=== PATIENT | male | born 1970 | race Caucasian/White ===

== ENCOUNTER 2019-04-12 15:24 | Emergency (ER) | payer OTHER ==
[~2019-04-12] VITALS: Ht 180.3 cm; Wt 102.1 kg
[2019-04-12] MEDS ORDERED: LISINOPRIL20 MG PO (15:29)
[2019-04-12] MEDS ORDERED: LOPID600 MG PO (15:30)
[2019-04-12 15:40] LABS: ABSOLUTE EOSINOPHILS 0.1 thou/uL (0.0-0.7); ABSOLUTE LYMPHOCYTES 1.7 thou/uL (0.8-5.3); ABSOLUTE MONOCYTES 0.5 thou/uL (0.0-1.2); ABSOLUTE NEUTROPHILS 3.3 thou/uL (1.6-8.1); BASOPHILS 0.8 %; EOSINOPHILS 1.9 %; HEMATOCRIT 45.2 % (42.0-52.0); HEMOGLOBIN 15.4 gm/dL (14.0-18.0); LYMPHOCYTES 30.1 %; MCH 29.8 pg (26.0-34.0); MCV 87.6 fL (80.0-100.0); MONOCYTES 8.4 %; MPV 7.7 fl. (7.2-11.1); NUCLEATED RBCS 0 /100WBC; PLATELET COUNT* 211 thou/uL (150-400); POLYS 58.8 %; RBC 5.16 mil/uL (4.50-6.00); RDW-CV 13.6 % (10.5-14.5); WBC 5.7 thou/uL (4.0-11.0)
[2019-04-12 15:53] LABS: APTT 27.3 Seconds (25.0-31.3); PROTIME 9.8 Seconds (9.20-11.50)
[2019-04-12 15:54] LABS: ANION GAP 10 mmol/L (7-16); BUN 15 mg/dL (7-18); CALCIUM 8.3 mg/dL (8.5-10.1); CHLORIDE 106 mmol/L (98-107); CO2 25 mmol/L (21-32); CREATININE 0.7 mg/dL (0.6-1.3); GLUCOSE 97 mg/dL (70-99); SODIUM 141 mmol/L (136-145)
[2019-04-12 16:08] LABS: ALKALINE PHOSPHATASE 68 U/L (46-116); CK-MB MASS 1.3 ng/mL (<0.5-3.6); LIPASE 192 U/L (73-393); MAGNESIUM 2.3 mg/dL (1.8-2.4); NT-PRO BRAIN NAT PEPTIDE 88 pg/mL (<300); SGOT 18 U/L (15-37); SGPT 50 U/L (30-65); TOTAL BILIRUBIN 0.2 mg/dL (<0.1-1.0); TOTAL PROTEIN 7.6 g/dL (6.4-8.2); TROPONIN-I LEVEL <0.06 ng/mL (<0.06)
[2019-04-12 16:28] VITALS: BP 117/70
--- NOTE | 2019-04-15 12:17 | EKG ---
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 : 1970 Requested By: Eliot Castro Order Number: [id number] MD: Cliff Cook Measurements Intervals [place] Rate: 60 P: 7 TX: 181 QRS: 8 QRSD: 112 T: -17 QT: 431 QTc: 431 Interpretive Statements Sinus rhythm Borderline intraventricular conduction delay Borderline T abnormalities, inferior leads ST elev, probable normal early repol pattern Baseline wander in lead(s) V1,V2 No previous ECG available for comparison Electronically Signed On 04-15-2019 12:17:41 CDT by Cliff Cook [email or web address] <ELECTRONICALLY SIGNED> By: Cliff Cook MD, [facility] 04/15/19 1217 1530 1530 Cliff Cook MD, [facility] /EPI
== END 2019-04-12 16:38 | disposition home or self-care (01) ==
LOC: M.ERS 15:24
PROVIDERS: Family Medicine
DX: R00.2 Palpitations (principal); I10 Essential (primary) hypertension; F41.9 Anxiety disorder, unspecified; E78.00 Pure hypercholesterolemia, unspecified

== ENCOUNTER 2019-05-26 03:06 | Inpatient (IN) | payer OTHER ==
[2019-05-26] VITALS (12 sets, daily range): BP systolic 90–132; BP diastolic 50–74
[~2019-05-26] VITALS: Ht 180.3 cm; Wt 100.1 kg
[~2019-05-26 03:06] MED LIST: LISINOPRIL10 MG PO; LOPID600 MG PO
[2019-05-26 04:03] LABS: ABSOLUTE EOSINOPHILS 0.1 thou/uL (0.0-0.7); ABSOLUTE LYMPHOCYTES 1.4 thou/uL (0.8-5.3); ABSOLUTE MONOCYTES 0.7 thou/uL (0.0-1.2); ABSOLUTE NEUTROPHILS 6.5 thou/uL (1.6-8.1); BASOPHILS 0.4 %; EOSINOPHILS 1.1 %; HEMATOCRIT 42.4 % (42.0-52.0); HEMOGLOBIN 14.3 gm/dL (14.0-18.0); LYMPHOCYTES 16.2 %; MCHC 33.7 g/dL (28.0-37.0); MONOCYTES 8.5 %; MPV 7.2 fl. (7.2-11.1); NUCLEATED RBCS 0 /100WBC; PLATELET COUNT* 235 thou/uL (150-400); POLYS 73.8 %; RBC 4.77 mil/uL (4.50-6.00); WBC 8.8 thou/uL (4.0-11.0)
[2019-05-26 04:34] LABS: CALCIUM 8.9 mg/dL (8.5-10.1); POTASSIUM 3.4 mmol/L (3.5-5.1)
[2019-05-26 04:38] LABS: MAGNESIUM 2.2 mg/dL (1.8-2.4); TOTAL BILIRUBIN 0.8 mg/dL (<0.1-1.0); TOTAL PROTEIN 7.3 g/dL (6.4-8.2); TROPONIN-I LEVEL 0.38 ng/mL (<0.06)
[2019-05-26 04:57] LABS: AMP/METHAMP POSITIVE (Negative); BARBITURATES Negative (Negative); BENZODIAZEPINES Negative (Negative); COCAINE Negative (Negative); METHADONE Negative (Negative); OPIATES Negative (Negative); PCP Negative (Negative); THC Negative (Negative)
[2019-05-26 04:58] LABS: URINE BILIRUBIN NEGATIVE (Negative); URINE BLOOD NEGATIVE (Negative); URINE CLARITY CLEAR; URINE COLOR YELLOW; URINE GLUCOSE-RANDOM NEGATIVE (Negative); URINE KETONES NEGATIVE (Negative); URINE LEUKOCYTES-REFLEX NEGATIVE (Negative); URINE NITRITE-REFLEX NEGATIVE (Negative); URINE PROTEIN NEGATIVE (Negative); URINE UROBILINOGEN 0.2 E.U./dl (0.2-1.0)
[2019-05-26 06:07] LABS: PROTIME 10.2 Seconds (9.20-11.50)
[2019-05-27] VITALS (7 sets, daily range): BP systolic 101–128; BP diastolic 52–76
[2019-05-27 04:54] LABS: HEMATOCRIT 39.3 % (42.0-52.0); MCH 29.9 pg (26.0-34.0); MCHC 33.1 g/dL (28.0-37.0); MCV 90.2 fL (80.0-100.0); MPV 7.5 fl. (7.2-11.1); RBC 4.36 mil/uL (4.50-6.00); RDW-CV 14.1 % (10.5-14.5); WBC 5.3 thou/uL (4.0-11.0)
[2019-05-27 05:59] LABS: CALCIUM 8.5 mg/dL (8.5-10.1); CREATININE 0.8 mg/dL (0.6-1.3); POTASSIUM 4.1 mmol/L (3.5-5.1)
[2019-05-27 06:05] LABS: TROPONIN-I LEVEL 0.94 ng/mL (<0.06)
[2019-05-27 06:18] LABS: ALBUMIN 3.4 g/dL (3.4-5.0); ALKALINE PHOSPHATASE 56 U/L (46-116); ANION GAP 9 mmol/L (7-16); BUN 9 mg/dL (7-18); CALCIUM 8.4 mg/dL (8.5-10.1); CHLORIDE 107 mmol/L (98-107); CHOLESTEROL 171 mg/dL (<200); CO2 24 mmol/L (21-32); CREATININE 0.7 mg/dL (0.6-1.3); GLUCOSE 82 mg/dL (70-99); HDL CHOLESTEROL 32 mg/dL (>40); LDL CHOLESTEROL 115 mg/dL (<100); POTASSIUM 4.1 mmol/L (3.5-5.1); SGOT 36 U/L (15-37); SGPT 43 U/L (30-65); SODIUM 140 mmol/L (136-145); TC:HDL 5.3 Ratio (Not establshd); TOTAL BILIRUBIN 0.5 mg/dL (<0.1-1.0); TOTAL PROTEIN 6.3 g/dL (6.4-8.2); TRIGLYCERIDE 123 mg/dL (<150); VLDL 25 mg/dL (<40)
[2019-05-27 06:19] LABS: SERUM ASSESSMENT Clear
--- NOTE | 2019-05-27 07:35 | EKG ---
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 : 1970 Requested By: Kaity Singh Order Number: [id number] MD: Cliff Cook Measurements Intervals [place] Rate: 64 P: 0 VT: 164 QRS: 22 QRSD: 95 T: 14 QT: 457 QTc: 472 Interpretive Statements Sinus rhythm ST elev, probable normal early repol pattern Compared to ECG 04/12/2019 15:30:16 ST (T wave) deviation still present Electronically Signed On 05-27-2019 7:35:40 CDT by Cliff Cook [email or web address] <ELECTRONICALLY SIGNED> By: Cliff Cook MD, [facility] 05/27/19 0735 0338 0338 Cliff Cook MD, [facility] /EPI
--- NOTE | 2019-05-27 07:36 | EKG ---
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
--- NOTE | 2019-05-27 10:40 | CON ---
[address] [address] CONSULTATION Name: ROGERDUKE W Room: [address] IN [facility]#: [id number] Admission: 05/26/19 Attend Phys: Tammy Johnson MD Discharge: Date of : 70 Report #: [id number] THIS REPORT FOR: //name// CC: LINDY physician/PCP Tammy Johnson DATE OF SERVICE: 05/26/2019 CARDIOLOGY CONSULTATION HISTORY OF PRESENT ILLNESS: The patient is a 48-year-old single white male who I was asked to see in the hospital today after he complained of chest pain. No old records are available. The patient has no previous history of heart disease. He notes, however, for the past couple of weeks when he exerts himself, he develops the pain in his chest and will become short of breath. The symptoms would resolve with rest. Last night, he woke up at 2 in the morning to go to the bathroom. When he went to the bathroom, he fell to the ground. He became diaphoretic and nauseated, and felt short of breath. He crawled over to his bed. When he tried to get up to bed, he felt very weak and apparently had a brief loss of consciousness. He noticed some pain on the right side of his chest. There was no radiation of the pain. He denied any recent trauma to his chest. The pain is not related to food. He has had no bleeding. He does have a chronic cough, but denied any fever or swelling of his legs. He notes occasional episodes of his heart race. He has had no diarrhea. PAST MEDICAL HISTORY: He has had hand surgery, shoulder surgery. Has a history of hyperlipidemia. From hypertriglyceridemia, he actually had pancreatitis in the past. He states he has a history of hypertension. CURRENT MEDICATIONS: Include lisinopril. He previously was on Lopid, but ran out of it and did not refill it. He was also on Lipitor in the past, but also ran out of it and did not refill it. He takes an aspirin a day. ALLERGIES: He has no known drug allergies. FAMILY HISTORY: His father had coronary artery bypass surgery. SOCIAL HISTORY: He is single, lives in [place] with his mother. He moved here about 4 months ago. Smokes a pack of cigarettes a day. No alcohol abuse. Unfortunately, he has no medical insurance. REVIEW OF SYSTEMS: He has had no history of stroke. He does have a chronic cough. No history of peptic ulcer disease, liver disease, kidney disease or cancer. He was diagnosed with PTSD in the past. PHYSICAL EXAMINATION: [place] [address] CONSULTATION Name: DUKE DURAN Pardeep Room: [address] IN [facility].#: [id number] Admission: 05/26/19 Attend Phys: Tammy Johnson MD Discharge: Date of : 70 Report #: [id number] GENERAL: Revealed a middle-aged male, lying in bed. He appeared in no acute distress. VITAL SIGNS: He had a blood pressure of 110/60, pulse 60. He is afebrile. HEENT: He was anicteric. Conjunctivae pink. Mucous membranes moist. NECK: Veins nondistended. No carotid bruits. Neck supple. CHEST: Clear to auscultation. CARDIAC: Regular rate and rhythm. ABDOMEN: Soft. EXTREMITIES: Had no edema. Posterior tibial pulse 2+ bilaterally. SKIN: Warm, dry. NEUROLOGIC: Nonfocal. LYMPHATICS: No adenopathy. MUSCULOSKELETAL: No joint effusion. RADIOLOGICAL DATA: His ECG showed a sinus rhythm. There was early repolarization, but no significant ST or T-wave change. His workup in the Emergency Room; he had a portable chest x-ray from March that showed no acute abnormality. LABORATORY DATA: Today, sodium 128. His creatinine is 1.0, glucose 91. Amylase 128, lipase 747. His troponin 0.38. His urine drug screen positive for methamphetamines. White blood cell count 8.8, hemoglobin 14.3. IMPRESSION AND RECOMMENDATIONS: 1. Unstable angina. Recommend cardiac catheterization. 2. History of hyperlipidemia. The patient previously was on a statin drug and Lopid. 3. History of pancreatitis. Possibly secondary to hypertriglyceridemia. 4. Tobacco abuse. 5. Chronic bronchitis. 6. Syncope. Reason unclear. <ELECTRONICALLY SIGNED> By: Cliff Cook MD, [facility] 05/27/19 1040 0749 [id number] Cook MD, FAC /nt
--- NOTE | 2019-05-27 11:06 | CARD ---
[address] [address] CARDIAC CATH REPORT Name: ROGERDUKE W Room: [address] IN [facility]#: [id number] Admission: 05/26/19 Attend Phys: Tammy Johnson MD Discharge: Date of : 70 Report #: [id number] THIS REPORT FOR: //name// APPROVED REPORT Study performed: 05/26/2019 08:58:13 Patient Details Patient Status: In-Patient Room #: The patient is a 48 year-old male Event Personnel Cliff Cook Farm Product Purchaser, Lesli Anderson RN Olive Picker, Jony Chaney HEALTH INFORMATION SYSTEMS TECHNICIAN Scrub, Harika Cazares RTR Monitor Procedures Performed Right transradial approach, Left Heart Catheterization, PTCA with Bare Metal Stenting Indication Non-STEMI , Chest pain Risk Factors Hypercholesterolemia, Hypertension, Tobacco History () Admission/Lab Medications/Medications given during procedure Glycoprotein IllbIlla Inhibitors, Heparin Unfract., Oxygen Nasal cannula 2 l per min, Midazolam (Versed) IV 2 mg, Lidocaine Subcut 6 ml, Nitroglycerin IA 400 mcg total, Verapamil IA 5 mg total, Heparin IV 8000 units total, Aggrastat IV Bolus 10 ml, Plavix PO 600 mg Procedure Narrative The patient was brought electively to the Cardiac Catheterization Laboratory and was prepped and draped in a sterile manner. The right wrist was infiltrated with 1% Lidocaine subcutaneous anesthesia. A 6F Slender Glidesheath sheath was inserted into the right radial artery. Coronary angiography was performed using coronary diagnostic catheters. The right coronary system was accessed and visualized with a 6F JR4 catheter. The left coronary system was accessed and visualized with a 6F JL4 catheter. The left ventricle was accessed and visualized with a 6F Pigtail catheter. Left ventricular/Aortic Valve gradient assessed via catheter pullback[place] [address] CARDIAC CATH REPORT Name: DUKE DURAN Room: [address] IN [facility]#: [id number] Admission: 05/26/19 Attend Phys: Tammy Johnson MD Discharge: Date of : 70 Report #: [id number] was performed in NICHOLS projection. Closure device was deployed with a Fr . The patient tolerated the procedure well and there were no complications associated with the procedure. There was no hematoma. Closure device was deployed with a Radial VASC-BAND. Intraoperative Conscious Sedation Sedation start time: 09:05 Case end Time: 09:52 Versed 2 mg Fluoro Time: 7.7 minutes Dose: DAP [id number] cGycm2 2012 mGy Contrast Type and Amount: Omnipaque 120 ml Coronary Angiography The patient's coronary anatomy is right dominant. 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 30% stenosis of the distal lad Circumflex 90% stenosis before 3rd marginal branch Right Coronary 30% proximal stenosis Left Ventriculography The left ventricle is normal in size with normal contractility. The left ventricular ejection fraction is estimated to be 60-65%. Left ventricular wall motion abnormalities are not present. There is no mitral insufficiency. Hemodynamics The aortic pressure is 90/56 mmHg with a mean of 74 mmHg. The left ventricular pressure is 84/10 mmHg with a mean of mmHg. The left ventricular end diastolic pressure is 12 mmHg. There was no gradient across the aortic valve upon pullback. Pullback from the left ventricle to the aorta revealed no gradient across the aortic valve. PCI Technique Lesion Anticoagulation was achieved with Heparin. bolus of iv aggrastat given Percutaneous coronary intervention was performed on the distal circumflex artery segment. The lesion stenosis prior to intervention was 90% with HOMERO 3 flow. A 6FR XB 3.5 100CM Guide Catheter was used to engage the LCA ostium. A BMW 190cm Interventional Guidewire was used [place] [address] CARDIAC CATH REPORT Name: DUKE DURAN Pardeep Room: [address]#: [id number] Admission: 05/26/19 Attend Phys: Tammy Johnson MD Discharge: Date of : 70 Report #: [id number] BALLOON DILATION A Balloon catheter Trek RX 2.5 X 8 was inserted and inflated up to 6.00atm for 14seconds. Repeat angiography revealed the following post-dilatation results: 30% stenosis. Additional Inflation: 14.00atm for 23seconds. Additional Inflation: 18.00atm for 16seconds. STENT DEPLOYMENT A bare metal stent Vision RX 2.75 X 18 was inserted and inflated up to 9.00atm for 19seconds. Repeat angiography revealed the following post-stent deployment results: 0% stenosis. Additional Inflation: 10.00atm for 15seconds. Additional Inflation: 12.00atm for 15seconds. Final angiography reveals 0 % stenosis with HOMERO 3 flow. Conclusion 1. 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 90% stenosis of the distal circumflex artery. 3. successful placement of a bare metal stent in the distal circumflex 4. LVEF 60-65% Recommendations Smoking Cessation Cardiac Rehabilitation Referral Aggressive Medical Therapy Medications Administered Clopidogrel <ELECTRONICALLY SIGNED> By: Cliff Cook MD, [facility] 05/27/19 1106 1106 1106Cliff Cook MD, FAC /INF
[2019-05-27] MEDS ORDERED: NITROGLYCERIN0.4 MG SUBLING (11:51)
[2019-05-27] MEDS ORDERED: ASPIR 8181 MG PO (11:52)
[2019-05-27] MEDS ORDERED: LIPITOR40 MG PO (11:52)
[2019-05-27] MEDS ORDERED: PLAVIX 75 MG TA75 M1 PO (11:53)
[2019-05-27] MEDS ORDERED: APAP650 PO (11:56)
--- NOTE | 2019-05-28 16:06 | EKG ---
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 : 1970 Requested By: Cliff Cook Order Number: [id number] Kanu MD: Jamie Moran Measurements Intervals [place] Rate: 49 P: 7 NM: 169 QRS: 26 QRSD: 100 T: 13 QT: 527 QTc: 476 Interpretive Statements Sinus bradycardia Baseline wander in lead(s) I,II,aVR,aVL,V2,V4,V6 Compared to ECG 05/26/2019 05:48:31 heart rate has decreased Electronically Signed On 05-28-2019 16:06:35 CDT by Jamie Moran [email or web address] <ELECTRONICALLY SIGNED> By: Jamie Moran MD, [facility] 05/28/19 1606 1052 1052 Jamie Moran MD, [facility] /EPI
--- NOTE | 2019-05-28 16:07 | EKG ---
[place] [address] ELECTROCARDIOGRAM REPORT Name: DUKE DURAN Room: [address] IN [facility]#: [id number] Admission: 05/26/19 Attend Phys: Tammy oJhnson MD Discharge: 05/27/19 Date of : 70 Report #: [id number] THIS REPORT FOR: //name// 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
--- NOTE | 2019-05-28 16:10 | EKG ---
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
[2019-05-29 03:07] LABS: GLYCOHEMOGLOBIN (HGB A1C) 5.3 % (4.8-5.6)
== END 2019-05-27 18:14 | disposition home or self-care (01) | DRG 248 ==
LOC: M.ERS 03:06 → M.TBA-ER 05:23 → M.2W 05:23
PROVIDERS: Internal Medicine; Internal Medicine Cardiovascular Disease; Personal Emergency Response Attendant; ADMIT Family Medicine
PROC: B2151ZZ Fluoroscopy of Left Heart using Low Osmolar Contrast (ICD-10-PCS; principal; 2019-05-26)
PROC: 4A023N7 Measurement of Cardiac Sampling and Pressure, Left Heart, Percutaneous Approach (ICD-10-PCS; principal; 2019-05-26)
PROC: 02703DZ Dilation of Coronary Artery, One Artery with Intraluminal Device, Percutaneous Approach (ICD-10-PCS; principal; 2019-05-26)
PROC: B2111ZZ Fluoroscopy of Multiple Coronary Arteries using Low Osmolar Contrast (ICD-10-PCS; principal; 2019-05-26)
DX: I21.4 Non-ST elevation (NSTEMI) myocardial infarction (principal); K85.90 Acute pancreatitis without necrosis or infection, unspecified; E78.5 Hyperlipidemia, unspecified; I95.1 Orthostatic hypotension; I20.0 Unstable angina; J42 Unspecified chronic bronchitis; M76.9 Unspecified enthesopathy, lower limb, excluding foot; F17.210 Nicotine dependence, cigarettes, uncomplicated; E78.00 Pure hypercholesterolemia, unspecified; I10 Essential (primary) hypertension; F41.9 Anxiety disorder, unspecified; F43.10 Post-traumatic stress disorder, unspecified; Z79.899 Other long term (current) drug therapy; Z82.49 Family history of ischemic heart disease and other diseases of the circulatory system